=== PATIENT | male | born 1990 | race Caucasian/White ===

== ENCOUNTER 2025-08-06 12:55 | Inpatient (IN) | payer OTHER ==
[~2025-08-06] VITALS: Ht 185.4 cm; Wt 86.3 kg
[2025-08-06 14:34] LABS: PLATELET COUNT (AUTO) 209 K/uL (150-450); RED BLOOD CELL COUNT(AUTO) 4.36 MIL/uL (4.50-5.90); RED CELL DISTRIBUTION WIDTH 14.2 % (11.5-14.5); WHITE BLOOD COUNT (AUTO) 6.7 K/uL (4.5-11.0)
[2025-08-06 14:37] LABS: CALCIUM, TOTAL 8.5 mg/dL (8.8-10.5); CREATININE 0.88 mg/dL (0.60-1.30); GLOMERULAR FILTR. RATE CALC > 60 mL/min (>60); GLUCOSE,RANDOM 87 mg/dL (70-110); SODIUM SERUM 139 mmol/L (136-145); UREA NITROGEN, BLOOD 18 mg/dL (7-18)
[2025-08-06] MEDS ORDERED: ACETAMINOPHEN 325 MG TABLET PO PRN (15:15)
[2025-08-06] MEDS ORDERED: ONDANSETRON HCL 4 MG/2 ML VIAL IVP PRN (15:15)
[2025-08-06] MEDS: HEPARIN SODIUM,PORCINE 5,000 UNITS/ML VIAL SQ SCH (15:24)
[2025-08-06] MEDS: LIDOCAINE 4% 50 ML SOLUTION TP SCH (15:24)
[2025-08-06 17:45] VITALS: BP 115/69; PULSE 77; RESP 18; TEMP 98.1; O2SAT 99
[2025-08-06 20:10] VITALS: BP 116/61; PULSE 74; RESP 18; TEMP 97.9; O2SAT 74
[2025-08-06] MEDS: DOCUSATE SODIUM 100 MG CAPSULE PO SCH (21:00)
[2025-08-06] MEDS ORDERED: SODIUM CHLORIDE 0.9% 500 ML IV ONE (21:29)
[2025-08-06] MEDS: CefTRIAXone 1 GM/DEXTROSE 50 ML IV SCH (21:41)
[2025-08-06] MEDS: VANCOMYCIN 1GM/WATER(PEG/NADA) 200 ML IV SCH (23:50)
[2025-08-07 06:25] VITALS: BP 114/78; PULSE 68; RESP 18; TEMP 97.7; O2SAT 97
[2025-08-07 06:57] LABS: PLATELET COUNT (AUTO) 218 K/uL (150-450); RED BLOOD CELL COUNT(AUTO) 4.47 MIL/uL (4.50-5.90); RED CELL DISTRIBUTION WIDTH 13.9 % (11.5-14.5); WHITE BLOOD COUNT (AUTO) 8.0 K/uL (4.5-11.0)
[2025-08-07 07:13] LABS: CALCIUM, TOTAL 8.8 mg/dL (8.8-10.5); CREATININE 0.69 mg/dL (0.60-1.30); GLOMERULAR FILTR. RATE CALC > 60 mL/min (>60); GLUCOSE,RANDOM 89 mg/dL (70-110); SODIUM SERUM 142 mmol/L (136-145); UREA NITROGEN, BLOOD 14 mg/dL (7-18)
[2025-08-07 08:09] VITALS: BP 111/60; PULSE 75; RESP 19; TEMP 97.9; O2SAT 97
[2025-08-07] MEDS: HYDROCODONE/ACETAMINOPHEN 5-325 MG TABLET PO PRN (08:54)
[2025-08-07 20:30] VITALS: BP 101/55; PULSE 84; RESP 20; TEMP 98.1; O2SAT 99
[2025-08-08 06:42] VITALS: BP 109/54; PULSE 61; RESP 18; TEMP 98.1; O2SAT 18
[2025-08-08 08:49] VITALS: BP 116/68; PULSE 82; RESP 16; TEMP 98.1; O2SAT 99
[2025-08-08 17:00] VITALS: BP 116/72; PULSE 70; RESP 18; TEMP 98.6; O2SAT 99
[2025-08-08 20:41] VITALS: BP 102/72; PULSE 75; RESP 18; TEMP 98.1; O2SAT 100
[2025-08-08] MEDS: CeFAZolin 1 GM/DEXTROSE 50 ML IV SCH (22:46)
[2025-08-09 06:23] VITALS: BP 116/70; PULSE 71; RESP 18; TEMP 97.7; O2SAT 98
[2025-08-09 08:18] VITALS: BP 97/69; PULSE 77; RESP 20; TEMP 98.1; O2SAT 98
[2025-08-09 08:44] VITALS: BP 128/79; PULSE 83; RESP 18; TEMP 98.3; O2SAT 99
[2025-08-09] MEDS ORDERED: IBUP-1492 PO (10:30)
[2025-08-09] MEDS ORDERED: BUPR1TAB32 SL (10:30)
[2025-08-09] MEDS ORDERED: ACET-3385 PO (10:30)
[2025-08-09] MEDS ORDERED: QUET200T PO (10:30)
[2025-08-09 20:09] VITALS: BP 112/76; PULSE 71; RESP 18; TEMP 98.2; O2SAT 100
[2025-08-10 00:32] VITALS: BP 116/72; PULSE 75; RESP 18; TEMP 98; O2SAT 99
[2025-08-10 05:16] VITALS: BP 102/72; PULSE 83; RESP 18; TEMP 98; O2SAT 99
[2025-08-10 08:36] VITALS: BP 115/79; PULSE 83; RESP 18; TEMP 98; O2SAT 99
[2025-08-10] MEDS ORDERED: SULF1TAB94 PO (15:10)
[2025-08-10] MEDS ORDERED: CEPH-558 PO (15:11)
[2025-08-10] MEDS ORDERED: LACT1CAP70 PO (15:13)
[2025-08-10] MEDS ORDERED: HONE15GE TP (15:14)
[2025-08-10] MEDS ORDERED: [UNRECOGNIZED DRUG - CODE] TP (15:16)
[2025-08-10 19:45] VITALS: BP 106/78; PULSE 73; RESP 18; TEMP 97.7; O2SAT 99
[2025-08-10] MEDS: COLLAGENASE 250 UNITS/GM 30 GM OINTMENT TP SCH (21:01)
[2025-08-11 04:15] VITALS: BP 106/69; PULSE 75; RESP 18; TEMP 97.7; O2SAT 99
[2025-08-11 08:07] VITALS: BP 106/65; PULSE 106; RESP 19; TEMP 97.7; O2SAT 98
[2025-08-11] MEDS ORDERED: COLL30OI TP (12:41)
== END 2025-08-11 14:25 | DRG 603 ==
LOC: EMS 12:55 → EDH 15:08 → 4S 16:36
PROVIDERS: ADMIT Internal Medicine; ATTEND Internal Medicine
DX: L03.115 Cellulitis of right lower limb (principal); E87.3 Alkalosis; Z79.899 Other long term (current) drug therapy
CPT/HCPCS: 80048; 83735; 85025; 85651; 86140; 96365; 99285; G0378; J0690; J0696; J1644; J7040